=== PATIENT | male | born 1945 ===

== ENCOUNTER 2021-09-08 10:18 | Emergency (ER) | payer OTHER ==
[~2021-09-08] VITALS: Ht 177.8 cm; Wt 109.8 kg
[2021-09-08 10:40] LABS: Calcium, Ionized (POC) 1.24 mmol/L (1.10-1.46); Chloride (POC) 105 mmol/L (98-108); Creatinine (POC) 2.9 mg/dL (0.8-1.3); Glucose (ISTAT POC) 250 mg/dL (70-99); Hemoglobin (POC) 12.9 g/dL (13.5-17.5); Potassium (POC) 4.5 mmol/L (3.5-5.5); Sodium (POC) 138 mmol/L (135-148); Total CO2 (POC) 18 mmol/L (21-32)
[2021-09-08 10:50] LABS: BASOPHILS ABSOLUTE AUTO 0.04 K/mm3 (0.00-0.23); BASOPHILS PERCENT AUTO 1 % (0-2); EOSINOPHILS ABSOLUTE AUTO 0.15 K/mm3 (0.00-0.68); EOSINOPHILS PERCENT AUTO 2 % (0-6); Hematocrit 39.6 % (37.0-53.0); Hemoglobin 13.1 g/dL (13.5-17.5); IMMATURE GRAN ABSOLUTE AUTO 0.02 K/mm3 (0.00-0.10); IMMATURE GRAN PERCENT AUTO 0 % (0-1); LYMPHOCYTES ABSOLUTE AUTO 1.57 K/mm3 (0.84-5.20); LYMPHOCYTES PERCENT AUTO 23 % (21-46); MONOCYTES ABSOLUTE AUTO 0.61 K/mm3 (0.16-1.47); MONOCYTES PERCENT AUTO 9 % (4-13); Mean Corpuscular HGB 27.6 pg (26.0-34.0); Mean Corpuscular HGB Conc 33.1 g/dL (31.5-36.5); Mean Corpuscular Volume 84 fL (80-100); Mean Platelet Volume 12.6 fL (9.1-12.4); NEUTROPHILS ABSOLUTE AUTO 4.31 K/mm3 (1.96-9.15); NEUTROPHILS PERCENT AUTO 64 % (41-73); Platelet Count 182 K/mm3 (150-400); RDW Coefficient Variation 13.4 % (11.7-14.2); RDW Standard Deviation 41.3 fL (35.1-46.3); Red Blood Cell Count 4.74 M/mm3 (4.30-5.90)
[2021-09-08 11:21] LABS: Bun/Creatinine Ratio 20.5 (12.0-20.0); Calcium, Blood 9.8 mg/dL (8.5-10.1); Creatinine, Blood 2.44 mg/dL (0.60-1.20); Potassium, Blood 4.3 mmol/L (3.5-5.5)
== END 2021-09-08 12:10 | disposition home or self-care (01) ==
LOC: ER 10:18
PROVIDERS: Emergency Medicine
DX: R00.1 Bradycardia, unspecified (principal); I12.9 Hypertensive chronic kidney disease with stage 1 through stage 4 chronic kidney disease, or unspecified chronic kidney disease; E11.22 Type 2 diabetes mellitus with diabetic chronic kidney disease; N18.4 Chronic kidney disease, stage 4 (severe); E78.5 Hyperlipidemia, unspecified; E11.40 Type 2 diabetes mellitus with diabetic neuropathy, unspecified; G47.33 Obstructive sleep apnea (adult) (pediatric); I25.10 Atherosclerotic heart disease of native coronary artery without angina pectoris
CPT/HCPCS: 80047; 80048; 85014; 85025; 93005; 93010; 99284-25

== ENCOUNTER → 2022-04-13 | Outpatient (CLI) | payer OTHER ==
[2022-04-13 12:40] LABS: Creatinine Urine 64.3 mg/dL (27.00-270.00); Protein, Urine Quantitative 25.8 mg/dL (0.0-11.9)
== END | disposition home or self-care (01) ==
LOC: LAB SHORT 11:03
PROVIDERS: Internal Medicine Nephrology
DX: N18.30 Chronic kidney disease, stage 3 unspecified (principal); R80.9 Proteinuria, unspecified
CPT/HCPCS: 81050; 82043; 82570; 84156

== ENCOUNTER → 2022-06-11 | Outpatient (CLI) | payer OTHER ==
[~2022-06-11] MED LIST: AMLO10 PO; Acetaminophen325 M1 PO; Aspir 8181 MG PO; CAMPHOR MENTHOL TOP; CEFU500T30 PO; CHLO25B PO; CREON DR 12,001 EACH PO; DICLOFENAC SOD100 G1 TOP; FAMO20 PO; FENO145 PO; FERSU300 PO; HUMALOG JU100 UNIT/2 SC; LIDO700A20 TOP; NOVOLIN N100 UNIT/2 SC; OMEP20ER PO; PRAV20 PO; PROP160ER PO; SEMAGLUTIDE SC; SERTRALINE HCL150 M1 PO; SODBIC650 PO; TAMS.4ER PO; THERA-D2000 UNIT PO; TRAZ100 PO; VANCOCIN HCL125 MG PO; VISBIOME 112.51 EACH PO
== END | disposition home or self-care (01) ==
LOC: LAB 15:34 → LAB SHORT 15:34
DX: N39.0 Urinary tract infection, site not specified (principal)
CPT/HCPCS: 87077; 87086; 87186

== ENCOUNTER 2022-08-12 10:30 | Emergency (ER) | payer OTHER ==
[~2022-08-12] VITALS: Ht 177.8 cm; Wt 108.9 kg
[2022-08-12 11:10] LABS: BASOPHILS ABSOLUTE AUTO 0.03 K/mm3 (0.00-0.23); BASOPHILS PERCENT AUTO 1 % (0-2); EOSINOPHILS ABSOLUTE AUTO 0.14 K/mm3 (0.00-0.68); EOSINOPHILS PERCENT AUTO 2 % (0-6); Hematocrit 42.6 % (37.0-53.0); IMMATURE GRAN ABSOLUTE AUTO 0.01 K/mm3 (0.00-0.10); IMMATURE GRAN PERCENT AUTO 0 % (0-1); LYMPHOCYTES ABSOLUTE AUTO 1.52 K/mm3 (0.84-5.20); LYMPHOCYTES PERCENT AUTO 26 % (21-46); MONOCYTES ABSOLUTE AUTO 0.44 K/mm3 (0.16-1.47); MONOCYTES PERCENT AUTO 8 % (4-13); Mean Corpuscular HGB 26.9 pg (26.0-34.0); Mean Corpuscular HGB Conc 32.9 g/dL (31.5-36.5); Mean Corpuscular Volume 82 fL (80-100); Mean Platelet Volume 11.9 fL (9.1-12.4); NEUTROPHILS ABSOLUTE AUTO 3.72 K/mm3 (1.96-9.15); NEUTROPHILS PERCENT AUTO 64 % (41-73); Platelet Count 170 K/mm3 (150-400); RDW Coefficient Variation 13.3 % (11.7-14.2); RDW Standard Deviation 39.5 fL (35.1-46.3); White Blood Cell Count 5.86 K/mm3 (4.00-11.30)
[2022-08-12] MEDS ORDERED: INDERAL XL120 M1 PO (11:22)
[2022-08-12 11:35] LABS: Albumin, Blood 3.5 g/dL (3.4-5.0); Albumin/Globulin Ratio 0.8 (0.8-1.8); Bilirubin, Total 0.4 mg/dL (0.1-1.0); Bun/Creatinine Ratio 16.8 (12.0-20.0); Calcium, Blood 9.9 mg/dL (8.5-10.1); Creatinine, Blood 1.96 mg/dL (0.60-1.20); Free Thyroxine 1.17 ng/dL (0.70-1.60); Globulin, Blood 4.2 g/dL (2.2-4.0); Magnesium, Blood 1.9 mg/dL (1.6-2.4); Potassium, Blood 4.3 mmol/L (3.5-5.5); Thyroid Stimulating Hormone 1.44 uIU/mL (0.360-4.800); Total Protein, Blood 7.7 g/dL (6.4-8.2)
== END 2022-08-12 13:11 | disposition home or self-care (01) ==
LOC: ER 10:30
PROVIDERS: Student in an Organized Health Care Education/Training Program
DX: R00.1 Bradycardia, unspecified (principal); I12.9 Hypertensive chronic kidney disease with stage 1 through stage 4 chronic kidney disease, or unspecified chronic kidney disease; E11.22 Type 2 diabetes mellitus with diabetic chronic kidney disease; N18.4 Chronic kidney disease, stage 4 (severe); E11.40 Type 2 diabetes mellitus with diabetic neuropathy, unspecified; E78.5 Hyperlipidemia, unspecified; I25.10 Atherosclerotic heart disease of native coronary artery without angina pectoris; N40.0 Benign prostatic hyperplasia without lower urinary tract symptoms; Z88.8 Allergy status to other drugs, medicaments and biological substances; Z88.1 Allergy status to other antibiotic agents; Z79.899 Other long term (current) drug therapy; Z79.82 Long term (current) use of aspirin; Z79.4 Long term (current) use of insulin
CPT/HCPCS: 36415; 80053; 83735; 84439; 84443; 85025; 93005; 93010; 93242; 99284-25

== ENCOUNTER 2022-10-06 16:42 | Inpatient (IN) | payer OTHER ==
[~2022-10-06] VITALS: Ht 177.8 cm; Wt 104.0 kg
[~2022-10-06 16:42] MED LIST changes: +INDERAL XL120 M1 PO
[2022-10-06 18:12] LABS: BASOPHILS ABSOLUTE AUTO 0.05 K/mm3 (0.00-0.23); BASOPHILS PERCENT AUTO 1 % (0-2); EOSINOPHILS ABSOLUTE AUTO 0.11 K/mm3 (0.00-0.68); EOSINOPHILS PERCENT AUTO 2 % (0-6); Hematocrit 42.2 % (37.0-53.0); Hemoglobin 14.3 g/dL (13.5-17.5); IMMATURE GRAN ABSOLUTE AUTO 0.03 K/mm3 (0.00-0.10); IMMATURE GRAN PERCENT AUTO 0 % (0-1); LYMPHOCYTES ABSOLUTE AUTO 1.84 K/mm3 (0.84-5.20); LYMPHOCYTES PERCENT AUTO 26 % (21-46); MONOCYTES ABSOLUTE AUTO 0.45 K/mm3 (0.16-1.47); MONOCYTES PERCENT AUTO 6 % (4-13); Mean Corpuscular HGB 27.3 pg (26.0-34.0); Mean Corpuscular HGB Conc 33.9 g/dL (31.5-36.5); Mean Corpuscular Volume 81 fL (80-100); Mean Platelet Volume 12.5 fL (9.1-12.4); NEUTROPHILS ABSOLUTE AUTO 4.57 K/mm3 (1.96-9.15); NEUTROPHILS PERCENT AUTO 65 % (41-73); Platelet Count 169 K/mm3 (150-400); RDW Coefficient Variation 14.2 % (11.7-14.2); RDW Standard Deviation 41.9 fL (35.1-46.3); Red Blood Cell Count 5.23 M/mm3 (4.30-5.90); White Blood Cell Count 7.05 K/mm3 (4.00-11.30)
[2022-10-06 18:39] LABS: Albumin, Blood 3.7 g/dL (3.4-5.0); Bilirubin, Total 0.4 mg/dL (0.1-1.0); Bun/Creatinine Ratio 24.2 (12.0-20.0); Calcium, Blood 9.8 mg/dL (8.5-10.1); Creatinine, Blood 1.98 mg/dL (0.60-1.20); Globulin, Blood 3.6 g/dL (2.2-4.0); Potassium, Blood 4.1 mmol/L (3.5-5.5); Total Protein, Blood 7.3 g/dL (6.4-8.2)
[2022-10-06 20:04] LABS: Magnesium, Blood 1.7 mg/dL (1.6-2.4); Thyroid Stimulating Hormone 2.21 uIU/mL (0.360-4.800)
[2022-10-07 01:05] LABS: Anti-Xa UFH, PHA Monitoring <0.10 IU/mL; International Normalized Ratio 1.01; Prothrombin Time Results 10.6 Sec (9.7-11.5)
[2022-10-07] MEDS ORDERED: ASPI325 PO (01:07)
--- NOTE | 2022-10-07 02:40 | NUR ---
TRANSFER NOTE THIS RN RECEIVED REPORT VIA PHONE FROM LEE ANN HARPER IN THE ER. PATIENT TO ROOM AT 0047. PATIENT CONTINUES TO HAVE REPORTS OF CHEST PAIN THAT ARE 6/10 THAT FEEL LIKE PRESSURE; RADIATING TO LEFT ARM AND ABDOMEN. PATIENT STATES THAT THE PAIN CAN BE CONSTANT OR INTERMITTENT AT TIMES BUT IS CURRENTLY CONSTANT THIS RN WRITES THIS NOTE. PATIENT IS CURRENTLY REFUSING NITRO FOR THE CHEST PAIN. THE MONITOR SHOWS SR WITH FREQUENT PVC'S/BIGEMINY WITH HR 60-80S; PULSES ARE STRONG THROUGHOUT AND EXTREMETIES HAVE GOOD COLOR, TEMPERATURE, AND GOOD CAP REFILL. PATIENT REPORTS DIZZINESS AND SOB AT REST AND STATES THAT IT INCREASES WHEN HE MOVES OR STANDS. HEP GTT STARTED AND INFUSING PER EMAR. BP STABLE, SBP 150'S. AFEBRILE. PATIENT IS NOTED TO HAVE TWITCHING MOTIONS IN ALL EXTREMETIES AND REPORTED TO THIS RN TO HAVE "SOME VERSION OF RESTLESS LEG SYNDROME". PATIENT ALSO REPORTS NEUROPATHY PAINS IN EXTREMETIES CURRENTLY. PATIENT IS A SBA AND USES A CANE AT BASELINE. THIS RN INSTRUCTED PATIENT TO NOT GET UP WITHOUT ASSISTANCE DUE TO CURRENT CONDITION AND DIZZINESS. PATIENT VERBALIZED UNDERSTANDING AND HAS USED A URINAL IN THE BED. PATIENT WAS ABLE TO TRANSFER FROM THE [facility] TO THE BED UPON ARRIVAL TO THE ROOM A SBA. PATIENT CONTINUES TO BE ON RA WITH O2 SATS >92% DESPITE REPORTS OF SOB. MEDICATING PER EMAR. BED IN LOWEST POSITION AND CALL LIGHT WITHIN REACH. THIS RN WILL REVIEW CHART AND CONTINUE TO MONITOR CLOSELY AND PROVIDE INTERVENTIONS NEEDED/ORDERED.
[2022-10-07 03:48] LABS: BASOPHILS ABSOLUTE AUTO 0.06 K/mm3 (0.00-0.23); BASOPHILS PERCENT AUTO 1 % (0-2); EOSINOPHILS ABSOLUTE AUTO 0.18 K/mm3 (0.00-0.68); EOSINOPHILS PERCENT AUTO 3 % (0-6); Hematocrit 40.9 % (37.0-53.0); Hemoglobin 13.7 g/dL (13.5-17.5); IMMATURE GRAN ABSOLUTE AUTO 0.03 K/mm3 (0.00-0.10); IMMATURE GRAN PERCENT AUTO 0 % (0-1); LYMPHOCYTES ABSOLUTE AUTO 2.44 K/mm3 (0.84-5.20); LYMPHOCYTES PERCENT AUTO 34 % (21-46); MONOCYTES ABSOLUTE AUTO 0.53 K/mm3 (0.16-1.47); MONOCYTES PERCENT AUTO 7 % (4-13); Mean Corpuscular HGB Conc 33.5 g/dL (31.5-36.5); Mean Corpuscular Volume 81 fL (80-100); Mean Platelet Volume 12.6 fL (9.1-12.4); NEUTROPHILS ABSOLUTE AUTO 3.93 K/mm3 (1.96-9.15); NEUTROPHILS PERCENT AUTO 55 % (41-73); Platelet Count 156 K/mm3 (150-400); RDW Coefficient Variation 14.3 % (11.7-14.2); RDW Standard Deviation 41.9 fL (35.1-46.3); Red Blood Cell Count 5.08 M/mm3 (4.30-5.90); White Blood Cell Count 7.17 K/mm3 (4.00-11.30)
[2022-10-07 04:08] LABS: Albumin, Blood 3.4 g/dL (3.4-5.0); Bilirubin, Total 0.5 mg/dL (0.1-1.0); Bun/Creatinine Ratio 23.4 (12.0-20.0); Calcium, Blood 9.8 mg/dL (8.5-10.1); Creatinine, Blood 2.05 mg/dL (0.60-1.20); Globulin, Blood 3.5 g/dL (2.2-4.0); Potassium, Blood 3.8 mmol/L (3.5-5.5); Total Protein, Blood 6.9 g/dL (6.4-8.2)
--- NOTE | 2022-10-07 05:17 | NUR ---
SHIFT SUMMARY PATIENT CONTINUES TO HAVE INTERMITTENT CHEST PAIN/PRESSURE, SOB, AND DIZZINESS WITH MOVEMENT. PATIENT CURRENTLY IS COMPLAINING MORE ABOUT ABDOMINAL PAIN THAT HE DESCRIBES BEING SORE/CONSTANT/RADIATING. PT CONTINUES TO HAVE FREQUENT PVC'S WITH HR 60-80S. BP STABLE. PT PLACED ON 1L VIA NC TO HELP WITH FEELING OF SOB, WHICH PT STATED HAS HELPED. O2 SATS >92%. AFEBRILE. NO DIAPHORESIS NOTED. PT CONTINUES TO REFUSE NITRO. NO CHANGE IN NEURO STATUS FROM PREVIOUS NOTE/ASSESSMENT. PT CALLING APPROPRIATELY. PT CONTINUES TO BE NPO. PULSES STRONG, EXTREMETIES WARM/PINK. BED IN LOWEST POSITION AND CALL LIGHT WITHIN REAHC. THIS RN WILL CONTINUE TO MONITOR UNTIL SHIFT CHANGE AT 0700.
[2022-10-07 08:42] LABS: Amylase, Blood 97 U/L (25-115)
[2022-10-07 12:01] LABS: CPK Creatine Kinase 233 U/L (39-308)
--- NOTE | 2022-10-07 18:22 | NUR ---
PT HAS BEEN RESTING WELL IN BED T/O THE ISIDRO FREE OF DISTRESS. PT REPORTS LT SIDED SHOULDER PAIN THAT RADIATES INTO ABD AND CHEST. HE HAS ALSO COMPLAINED OF CASTILLO T/O THE DAY, PT IS ALL RELIEVED WITH FENTANYL IVP FOR REPORTED 9/10 PAIN. PT A/O X4, ANSWERING QUESTIONS APPROPRIATELY IN FULL SENTENCES. LS CELAR T/O ALL LUNG TENORIO. VSS. NADN. HE IS ABLE TO SIT AT BEDSIDE TO USE URINAL AND TO EAT MEALS. PT WILL BE NPO TONIGHT FOR STRESS TEST THAT WILL BEGING AT 0730 IN THE AM, PT IS MADE AWARE OF THIS.
--- NOTE | 2022-10-07 20:34 | NUR ---
ASSUMPTION OF CARE/UPDATE THIS RN ASSUMED CARE OF PATIENT AT 1900. REPORT TAKEN FROM REBECCA HARPER. PATIENT PRESSED CALL BUTTON DURING REPORT, AT WHICH TIME CRIB ATTENDANT BECKI, DAYA RN, AND REBECCA HARPER WENT TO BEDSIDE D/T PT STATING HE WAS NOT DOING WELL. PATIENT REPORTED A "POUNDING/THROBBING" HEADACHE THAT HE FELT THROUGHOUT HIS ENTIRE HEAD. HE STATED IT CAME ON QUICKLY. PT WAS PREVIOUSLY MEDICATED PER EMAR FOR HEADACHE AND BACK PAIN AN HOUR BEFORE. PATIENT ALSO STATED HE FELT "HE WAS LOSING CONTROL OF HIS BODY". THIS RN NOTED TWITCHING IN ALL EXTREMETIES. PATIENT SAT HIMSELF UP ON THE SIDE OF THE BED AND REPORTED THAT THE LUMBAR REGION OF HIS BACK WAS GIVING HIM SHARP PAINS THAT HE WAS FEELING RADIATE TO HIS LEGS; TWITCHING CONTINUED THROUGHOUT EXTREMETIES. PATIENT WAS ASSISTED BACK IN BED AND GIVEN COLD WASH CLOTH FOR FOREHEAD. KNEES RAISED IN BED TO ASSIST WITH BACK PAIN. PT STATED THAT HIS BACK FELT BETTER LYING DOWN. PT WAS INTSTRUCTED TO SLOW BREATHING AND TAKE DEEP BREATHS. TWITCHING APPEARED TO IMPROVE WITH POSITIONING. VITALS STABLE DURING EVENT. MONITOR CONTINUED TO SHOW SR WITH PVC'S. ON RA WITH O2 SATS >94%. SBP 140'S. THIS RN CHECKED ON PT 10 MINUTES LATER AND PATIENT STATED THAT HEADACHE WAS IMPROVING AND THE TWITCHING AND BACK PAIN WAS BETTER WELL. BED IN LOWEST POSITION AND CALL LIGHT WITHIN REACH. THIS RN WILL CONTINUE TO MONITOR CLOSELY AND PROVIDE INTERVENTIONS NEEDED/ORDERED.
--- NOTE | 2022-10-08 05:52 | NUR ---
SHIFT SUMMARY NO ACUTE CHANGES SINCE PREVIOUS NOTE. PATIENT DENIES CHEST PAIN/PRESSURE AND SOB/DIZZINESS. PATIENT REPORTS ONLY A MILD HEADACHE, ABDOMINAL PAIN, AND BACK PAIN. PATIENT ON 1L VIA NC D/T DESATTING WHILE SLEEPING. SR WITH PVC'S AND ESCAPE BEATS ON MONITOR; BIGEMINY/TRIGEMINY NOTED AT TIMES. PATIENT ALERT AND ORIENTED FULLY. ABLE TO MAKE NEEDS KNOWN. CALLING APPROPRIATELY. INDEPENDENT WITH URINAL AND REPOSITIONING IN BED. NO FURTHER PROBLEMS WITH TWITCHING NOTED BY THIS RN SINCE PREVIOUS NOTE. HEP GTT INFUSING PER EMAR. BED IN LOWEST POSITION AND CALL LIGHT WITHIN REACH. THIS RN WILL CONTINUE TO MONITOR UNTIL SHIFT CHANGE AT 0700.
[2022-10-08 05:58] LABS: Hematocrit 42.3 % (37.0-53.0); Hemoglobin 14.2 g/dL (13.5-17.5); Platelet Count 162 K/mm3 (150-400)
[2022-10-08 06:20] LABS: Bun/Creatinine Ratio 21.2 (12.0-20.0); Calcium, Blood 9.5 mg/dL (8.5-10.1); Creatinine, Blood 2.12 mg/dL (0.60-1.20); Potassium, Blood 3.9 mmol/L (3.5-5.5)
--- NOTE | 2022-10-08 17:25 | NUR ---
SHIFT SUMMARY; ASSUMED CARE AT 0700. A/A/OX4, 2 DAY STRESS TEST STARTED THIS AM. INDEPENDANT IN ROOM AND WITH REPOSITIONING. MEDS PER EMAR. FENTANYL PRN FOR CHRONIC BACK PAIN. USES URINAL AT BEDSIDE. HEPARIN INFUSING AT 17UNITS/KG PER ORDERS. NO ACUTE MEDICAL CHANGES DURING SHIFT, VSS, DENIES CP, WILL CONTINUE TO MONITOR AND TREAT UNTIL CHANGE OF SHIFT.
--- NOTE | 2022-10-09 06:29 | NUR ---
SHIFT SUMMARY PT A&O X4; PLEASANT AND COOPERATIVE WITH CARE. VSS. PT DENIES SOB OR CHEST PAIN. PT REPORTS 5/10 CHEST PRESSURE, STATES FEELS "LIKE SOMETHING SITTING ON HIS CHEST". PT STATES THIS IS NOT NEW PRESSURE, HAS NOT WORSENED OR CHANGED. PT NOT DIAPHORETIC, DENIES LIGHTHEADNESS OR DIZZINESS. PT REPORTS CHRONIC BACK PAIN, ALSO ABD PAIN. MEDICATED PER EMAR. PT DID NOT REST MUCH THROUGHOUT SHIFT. PT ABLE TO VERBALIZE NEEDS AND CALLS APPROPRIATELY. PT NPO SINCE 0000 FOR 2ND PART OF STRESS TEST THIS AM. HEPARIN INFUSING PER EMAR.
[2022-10-09 17:15] LABS: Albumin, Blood 3.6 g/dL (3.4-5.0); Anion Gap 7 mmol/L (6-16); Blood Urea Nitrogen 39 mg/dL (8-24); CO2, Blood 24 mmol/L (21-32); Calcium, Blood 9.6 mg/dL (8.5-10.1); Chloride, Blood 105 mmol/L (98-108); Creatinine, Blood 2.29 mg/dL (0.60-1.20); Glomerular Filtration Rate 29 (60-); Glucose, Blood 186 mg/dL (70-99); Phosphorus, Blood 2.9 mg/dL (2.5-4.9); Potassium, Blood 3.8 mmol/L (3.5-5.5); Sodium, Blood 136 mmol/L (136-145)
--- NOTE | 2022-10-09 17:51 | NUR ---
SHIFT SUMMARY; ASSUMED CARE AT 0700. A/A/OX4, INDEPENDANT IN ROOM. 2ND HALF OF STRESS TEST COMPLETE TODAY. DENIES CHEST PAIN OR SOB DURING SHIFT. PLAN FOR ANGIO IN AM PER CARDIOLOGY, NPO AFTER MIDNIGHT. VSS, MEDICATED PER EMAR. NO ACUTE MEDICAL CHANGES DURING SHIFT. WILL CONTINUE TO MONITOR AND TREAT UNTIL CHANGE OF SHIFT.
[2022-10-10 04:40] LABS: Hematocrit 40.2 % (37.0-53.0); Hemoglobin 13.5 g/dL (13.5-17.5); Mean Platelet Volume 12.3 fL (9.1-12.4); Platelet Count 152 K/mm3 (150-400)
[2022-10-10 04:56] LABS: Albumin, Blood 3.4 g/dL (3.4-5.0); Anion Gap 7 mmol/L (6-16); Blood Urea Nitrogen 36 mg/dL (8-24); CO2, Blood 26 mmol/L (21-32); Calcium, Blood 9.2 mg/dL (8.5-10.1); Chloride, Blood 106 mmol/L (98-108); Creatinine, Blood 2.25 mg/dL (0.60-1.20); Glomerular Filtration Rate 30 (60-); Glucose, Blood 176 mg/dL (70-99); Phosphorus, Blood 3.5 mg/dL (2.5-4.9); Potassium, Blood 3.7 mmol/L (3.5-5.5); Sodium, Blood 139 mmol/L (136-145)
--- NOTE | 2022-10-10 06:01 | NUR ---
SHIFT SUMMARY PT PLEASANT AND COOPERATIVE WITH CARE, A&O X4. VSS. HERPARIN INFUSING PER EMAR, NS INFUSING PER EMAR. PT NPO FOR ANGIO THIS AM. PT UP IN ROOM TO USE BATHROOM INDEPENDENTLY, PT DOES WELL AND TOLERATES THIS WELL. PT DENIES CHEST PAIN OR CHEST PRESSURE DURING SHIFT. DENIES SOB. PT DOES REPORT 6 - 7/10 PAIN IN BACK AND ABDOMEN, REPOSITIONING, ALLOWING FOR REST AND MEDICATING PER EMAR TO HELP MANAGE PAIN. NO ACUTE CHANGES THROUGHOUT SHIFT. CALL LIGHT IN REACH
--- NOTE | 2022-10-10 17:35 | NUR ---
SHIFT SUMMARY; ASSUMED CARE AT 0700. A/A/OX4, TO [facility]ENTER AT 0845 FOR ANGIO. RETURNS AT 1030. RIGHT RADIAL SITE, TR BAND AND ARMBOARD INTACT. CAP REFILL <3, RADIAL PULSE PALPABLE, TR BAND RECOVERED AND REMOVED PER ORDERS, TEGADERM IN PLCE, NO BRUISING SWELLING OR BLEEDING FROM SITE. HEPARIN DC'D PER ORDERS, NS INFUSING AT 75ML/HR. AMBULATES IN ROOM WITHOUT DIFFICULTY, REPOSITIONS SELF IN BED NEEDED. DENIES CP OR SOB DURING SHIFT. VSS, WILL CONTINUE TO MONITOR AND TREAT UNTIL CHANGE OF SHIFT.
[2022-10-11 04:47] LABS: Hematocrit 39.5 % (37.0-53.0); Hemoglobin 13.1 g/dL (13.5-17.5)
[2022-10-11 05:13] LABS: Albumin, Blood 3.4 g/dL (3.4-5.0); Anion Gap 9 mmol/L (6-16); Blood Urea Nitrogen 30 mg/dL (8-24); Bun/Creatinine Ratio 14.7 (12.0-20.0); CO2, Blood 23 mmol/L (21-32); Calcium, Blood 9.3 mg/dL (8.5-10.1); Chloride, Blood 107 mmol/L (98-108); Creatinine, Blood 2.04 mg/dL (0.60-1.20); Glomerular Filtration Rate 33 (60-); Glucose, Blood 193 mg/dL (70-99); Magnesium, Blood 2.1 mg/dL (1.6-2.4); Phosphorus, Blood 2.9 mg/dL (2.5-4.9); Potassium, Blood 3.9 mmol/L (3.5-5.5); Sodium, Blood 139 mmol/L (136-145)
--- NOTE | 2022-10-11 05:38 | NUR ---
SHIFT SUMMARY PT PLEASANT THROUGHOUT SHIFT. VSS; PT HAD SEVERAL EPISODES OF HR DECREASING WHILE ASLEEP, 39 - 50'S. PT DID HAVE TEMP OF 99.7, TYLENLOL GIVEN AND TEMPERATURE IN ROOM TURNED DOWN. REASSESSMENT SHOWED TEMP OF 98.8. PT RESTED WEL MOST OF THE SHIFT. PT DID HAVE PAIN ON AND OFF; MEDICATED PER EMAR. ALSO HAD ONE EPISODE OF BLOODY NOSE. RADIAL SITE STILL FREE OF OOZING, SWELLING, TENDERNESS OR PAIN. AT SHIFT CHANGE, THIS RN NOTED EDEMA IN R HAND; IT WAS FOUND THAT IV SITE HAD INFILTRATED. IV REMOVED. R HAND IS STILL SWOLLEN BUT IS DECREASING A LITTLE. NS INFUSING PER EMAR. 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 SHOULD BE IN TO SEE PT SOMETIME THIS AM. PT UP IN ROOM INDEPENDENTLY TO USE BATHROOM. CALL LIGHT IN REACH AND PT CALLING APPROPRIATELY
--- NOTE | 2022-10-11 16:04 | NUR ---
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 CARDIAC: PATIENT WITH PREVIOUS STRESS TEST AND POST RCA BALLOONING 10/10, IS AWAITING CONSULT AND POSSIBLE INTERVENTION TOMORROW. WILL BE PRESUMPTIVELY NPO 0000. DENIES CHEST PAIN/PRESSURE OR SOB. DID HAVE SOME MILD DIZZINESS IN THE SHOWER, SELF RESOLVED NONE SINCE. PATIENT HAS BEEN NORMOTENSIVE FOR PATIENT. PULM: SPO2 >96% ON RA. GI/: ABLE TO WALK TO BATHROOM OR USE BEDSIDE URINAL. NO CONCERNS AT THIS TIME. WILL COTINUE TO MONITOR UNTIL SHIFT CHANGE, NO CONCERNS AT THIS TIME FROM STAFF OR PATIENT AT THIS TIME.
[2022-10-12 04:24] LABS: Hemoglobin 12.8 g/dL (13.5-17.5)
[2022-10-12 05:09] LABS: Albumin, Blood 3.2 g/dL (3.4-5.0); Anion Gap 10 mmol/L (6-16); Blood Urea Nitrogen 36 mg/dL (8-24); Bun/Creatinine Ratio 17.1 (12.0-20.0); CO2, Blood 22 mmol/L (21-32); Calcium, Blood 9.5 mg/dL (8.5-10.1); Chloride, Blood 106 mmol/L (98-108); Glomerular Filtration Rate 32 (60-); Glucose, Blood 195 mg/dL (70-99); Phosphorus, Blood 2.8 mg/dL (2.5-4.9); Potassium, Blood 3.8 mmol/L (3.5-5.5); Sodium, Blood 138 mmol/L (136-145)
--- NOTE | 2022-10-12 05:53 | NUR ---
SHIFT SUMMARY VSS; HR 70'S W/ TRIGIMENY PVC'S, SBP 140'S, 02 SATS MAINTAINING >96% ON RA. NO EVENTS OF HR DECREASING WHILE SLEEPING. PT DENIES CHEST PAIN, PRESSURE, SOB, DIZZINESS OF LIGHTHEADNESS. PT REPORTS BACK AND ABDOMINAL PAIN 6-7/10; MEDICATED PER EMAR. PT RESTED WELL. PT UP TO RESTROOM INDEPENDENTLY THROUGHOUT SHIFT. PT REPORTS BEING A LITTLE NERVOUS AND ANXIOUS FOR POSSIBLE PROCEDURE TOMORROW. THIS RN LISTENED, ANSWERED QUESTIONS AND OFFERED COMFORT. NO EVENTS OF NOSE BLEEDS THIS SHIFT. NO ACUTE CHANGES THROUGHOUT SHIFT. AROUND 1999; PT BECAME FRUSTRATED AND UPSET D/T SITUATION WITH RT AND PT "HAVING TO SIGN A PAPER ABOUT CPAP". THIS RN LISTENED AND OFFERED COMFORT TO DEESCALATE SITUATION, THIS RN ALSO INFORMED PUBLIC RELATIONS CONSULTANT. PUBLIC RELATIONS CONSULTANT ALSO IN TO TALK WITH PT AND EXPLAIN FORM AND PURPOSE OF THE FORM. PT WAS ABLE TO CALM DOWN AFTER A LITTLE WHILE AND VERBALIZED UNDERSTANDING OF THE SITUATION. PT WAS UPSET WITH APPROACH OF RT AND THE FORM, ALSO WITH "LITTLE THINGS THAT HAVE BUILT UP" SINCE HIS ARRIVAL. MAY BENEFIT FROM PATIENT ADVOCATE VISIT.
--- NOTE | 2022-10-12 06:01 | NUR ---
UPDATE DR. CRUZ IN TO SEE PT THIS AM REGARDING RENAL LABS AND TO ROUND. NEW ORDERS FOR NS AT 50MLS/HR STARTING NOW AND MUCAMYST 1200 PO BID. ORDERS PLACED. NS INFUSING.
--- NOTE | 2022-10-12 08:13 | NUR ---
NURSING PCU DAYSHIFT: Assumed care of pt at approx 0700. A/O, cooperative w/care. C/O some back discomfort r/t bed though denies any other pain. Skin intact w/no breakdown noted, recovered R radial site. Ambulates independently and w/o difficulty, chronic UE tremors which pt states are normal. Tele in place, NSR w/PVC's, no c/o CP/pressure, BP 139/106 prior to a.m. meds, no noted edema. L/S cta t/o, O2 sat 100% on RA, no cough. Abd soft, tender w/palp, BT+, voiding w/o difficulty per pt. PIV x1, NS iniated at 50cc/hr as per nephrology d/o. No s/s of acute distress this a.m. Pt NPO for planned mesenteric angiogram w/IR. Denies any current needs or questions regarding plan of care. Seen by head of housekeeping and new d/o received, PMD currently at bedside. Call light in reach, cont to monitor for any changes.
--- NOTE | 2022-10-12 17:37 | NUR ---
NURSING PCU DAYSHIFT SUMMARY: Pt to [facility] early this afternoon for mesenteric angiogram, returned to room at approx 1330, R groin site w/angio-seal closure device, stent placement to SMA. Site w/no s/s bleed/hematoma, recovered as per orders w/o difficulty, pt ambulated in room, remains stable. at bedside this afternoon, procedure results discussed, denied questions/needs at that time. Pt currently OOB in chair having dinner, IVF continue to infuse as per d/o, no s/s of acute distress. Call light in reach, cont to monitor until rpt is given to NOC RN.
--- NOTE | 2022-10-13 05:58 | NUR ---
CONTROLS TECHNICIAN SUMMARY PT IS ALERT AND ORIENTED THIS SHIFT COMMUNICATING APPRORIATELY W STAFF. PT DENIED ANY CP OR PRESSURE THIS SHIFT. TELE SHOWING SR 70'S W BIGEMINAL AND TRIGEMINAL PVC'S THIS SHIFT. PT'S R GROIN SITE IS C/D/I W NO S/S OF BLEEDING, SWELLING OR TENDERNESS THIS SHIFT. BP WNL AND STABLE. PT ABLE TO SLEEP COMFORTABLY FOR MOST OF THE NIGHT W CALL LIGHT WITHIN REACH. WILL REPORT TO ONCOMING RN.
[2022-10-13 06:33] LABS: Hemoglobin 13.9 g/dL (13.5-17.5)
[2022-10-13 07:06] LABS: Albumin, Blood 3.5 g/dL (3.4-5.0); Anion Gap 9 mmol/L (6-16); Blood Urea Nitrogen 35 mg/dL (8-24); Bun/Creatinine Ratio 17.9 (12.0-20.0); CO2, Blood 24 mmol/L (21-32); Chloride, Blood 106 mmol/L (98-108); Creatinine, Blood 1.96 mg/dL (0.60-1.20); Glomerular Filtration Rate 35 (60-); Glucose, Blood 145 mg/dL (70-99); Potassium, Blood 3.8 mmol/L (3.5-5.5); Sodium, Blood 139 mmol/L (136-145)
--- NOTE | 2022-10-13 07:34 | NUR ---
Alert, oriented and pleasantly conversant. No complaints at this time; states that he is expecting to be discharged today, and he is agreeable to this. STates that his pharmacy is the [facility], first, [place] if not able to get meds from the [place].
[2022-10-13] MEDS ORDERED: HUMALOG KW100 UNIT/1 UD (10:15)
[2022-10-13] MEDS ORDERED: NAC600 MG PO (10:19)
[2022-10-13] MEDS ORDERED: CLOP75 PO (10:20)
[2022-10-13] MEDS ORDERED: Isosorbide Mono30 MG PO (10:22)
[2022-10-13] MEDS ORDERED: Lopressor 50 mg50 MG PO (10:23)
[2022-10-13] MEDS ORDERED: NITR.4SL SL (10:24)
[2022-10-13] MEDS ORDERED: AFRIN15 M6 (10:25)
--- NOTE | 2022-10-13 11:22 | NUR ---
Discharge instructions were reviewed with the patient and his . Questions were answered, and they expressed understanding and appreciation for the information. Pt declined wheelchair transport out to private vehicle. STates prefers to walk out with his . IV and telemetry were removed.
== END 2022-10-13 11:24 | disposition home or self-care (01) | DRG 357 ==
LOC: ER 16:42 → PCU 16:43
PROVIDERS: Internal Medicine; Internal Medicine Interventional Cardiology; Internal Medicine Nephrology; Physician Assistant; Student in an Organized Health Care Education/Training Program; ADMIT Internal Medicine
PROC: 02703ZZ Dilation of Coronary Artery, One Artery, Percutaneous Approach (ICD-10-PCS; 2022-10-10)
PROC: 4A023N7 Measurement of Cardiac Sampling and Pressure, Left Heart, Percutaneous Approach (ICD-10-PCS; 2022-10-10)
PROC: B215YZZ Fluoroscopy of Left Heart using Other Contrast (ICD-10-PCS; 2022-10-10)
PROC: B211YZZ Fluoroscopy of Multiple Coronary Arteries using Other Contrast (ICD-10-PCS; 2022-10-10)
PROC: 04753DZ Dilation of Superior Mesenteric Artery with Intraluminal Device, Percutaneous Approach (ICD-10-PCS; principal; 2022-10-12)
PROC: B414YZZ Fluoroscopy of Superior Mesenteric Artery using Other Contrast (ICD-10-PCS; 2022-10-12)
DX: K55.1 Chronic vascular disorders of intestine (principal); E87.1 Hypo-osmolality and hyponatremia; N18.4 Chronic kidney disease, stage 4 (severe); N17.9 Acute kidney failure, unspecified; Z28.21 Immunization not carried out because of patient refusal; I25.10 Atherosclerotic heart disease of native coronary artery without angina pectoris; I12.9 Hypertensive chronic kidney disease with stage 1 through stage 4 chronic kidney disease, or unspecified chronic kidney disease; E11.22 Type 2 diabetes mellitus with diabetic chronic kidney disease; G47.33 Obstructive sleep apnea (adult) (pediatric); E11.40 Type 2 diabetes mellitus with diabetic neuropathy, unspecified; N40.0 Benign prostatic hyperplasia without lower urinary tract symptoms; E11.65 Type 2 diabetes mellitus with hyperglycemia; E86.9 Volume depletion, unspecified; D63.1 Anemia in chronic kidney disease; M54.9 Dorsalgia, unspecified; G89.29 Other chronic pain; Z95.5 Presence of coronary angioplasty implant and graft; Z88.8 Allergy status to other drugs, medicaments and biological substances; Z79.4 Long term (current) use of insulin; Z79.82 Long term (current) use of aspirin; Z79.899 Other long term (current) drug therapy
CPT/HCPCS: 36415; 37236; 37252; 71046; 71275; 74175; 75726; 76770; 76937; 78452; 80048; 80053; 80069; 82150; 82550; 82947; 83605; 83690; 83735; 83880; 84443; 84484; 85014; 85018; 85025; 85049; 85347; 85520; 85610; 92920; 93005; 93010; 93017; 93454; 94762; 96374; 96375; 96376; 99152; 99153; 99285-25; A9270; A9500; C1725; C1753; C1760; C1769; C1876; C1887; C1894; G0378; J0461; J0706; J1644; J1815; J2250; J2405; J2785; J3010; J7030; J7040; J7050; Q9967

== ENCOUNTER → 2022-12-16 | Outpatient (CLI) | payer OTHER, MEDICARE ==
[~2022-12-16] MED LIST changes: +AFRIN15 M6; +ASPI325 PO; +CLOP75 PO; +HUMALOG KW100 UNIT/1 UD; +Isosorbide Mono30 MG PO; +Lopressor 50 mg50 MG PO; +NAC600 MG PO; +NITR.4SL SL
[2022-12-16 15:57] LABS: Creatinine Urine 66.8 mg/dL (27.00-270.00); Protein, Urine Quantitative 37.1 mg/dL (0.0-11.9)
== END | disposition home or self-care (01) ==
LOC: LAB SHORT 13:13
PROVIDERS: Internal Medicine Nephrology
DX: N18.2 Chronic kidney disease, stage 2 (mild) (principal); N25.81 Secondary hyperparathyroidism of renal origin; E55.9 Vitamin D deficiency, unspecified; E78.00 Pure hypercholesterolemia, unspecified; R76.9 Abnormal immunological finding in serum, unspecified; R94.5 Abnormal results of liver function studies; R94.6 Abnormal results of thyroid function studies
CPT/HCPCS: 81050; 82043; 82570; 84156

== ENCOUNTER → 2023-02-16 | Outpatient (CLI) | payer OTHER ==
[2023-02-16 14:09] LABS: Adenovirus F 40/41 Not Detected (NOT DETECT); Astrovirus Not Detected (NOT DETECT); Campylobacter Sp Not Detected (NOT DETECT); Cryptosporidium Not Detected (NOT DETECT); Cyclospora Cayetanensis Not Detected (NOT DETECT); E. Coli O157 Not Detected (NOT DETECT); Entamoeba Histolytica Not Detected (NOT DETECT); Enteroaggregative E. coli-EAEC Not Detected (NOT DETECT); Enteropathogenic E. coli-EPEC Not Detected (NOT DETECT); Enterotoxigenic E. coli-ETEC Not Detected (NOT DETECT); Giardia Lamblia Not Detected (NOT DETECT); Norovirus GI/GII Not Detected (NOT DETECT); Plesiomonas Shigelloides Not Detected (NOT DETECT); Rotavirus A Not Detected (NOT DETECT); Salmonella Sp Not Detected (NOT DETECT); Sapovirus Not Detected (NOT DETECT); Shiga Toxin-prod E. coli-STEC Not Detected (NOT DETECT); Shigella/Enteroin E. coli-EIEC Not Detected (NOT DETECT); Vibrio Cholerae Not Detected (NOT DETECT); Vibrio Sp Not Detected (NOT DETECT); Yersinia Enterocolitica Not Detected (NOT DETECT)
== END | disposition home or self-care (01) ==
LOC: LAB SHORT 09:15
PROVIDERS: Student in an Organized Health Care Education/Training Program
DX: R19.7 Diarrhea, unspecified (principal)
CPT/HCPCS: 87507

== ENCOUNTER 2025-02-13 08:27 | Day surgery (SDC) | payer OTHER ==
[~2025-02-13] VITALS: Ht 177.8 cm; Wt 115.3 kg
[~2025-02-13 08:27] MED LIST changes: +EPINEPhrine HCl 1 MG/ML 1ML Amp ONE; +FentaNYL Citrate 50 MCG/ML 2 ML Injection ONE; +Lactated Ringer's 1,000 ML IV ONE; +Lidocaine 2%-Epineph 1:100000 20 ML MDV ONE; +propofoL 20 ML IV ONE
[2025-02-13] MEDS ORDERED: CeFAZolin Sodium 2,000 MG VIAL ONE (09:08)
[2025-02-13] MEDS ORDERED: SEMAGLUTIDE (09:43)
[2025-02-13] MEDS ORDERED: FISH OIL 1,0001 EA10 PO (09:44)
[2025-02-13] MEDS ORDERED: Seroquel Xr50 MG PO (09:46)
[2025-02-13] MEDS ORDERED: PANT20 PO (09:47)
[2025-02-13] MEDS ORDERED: LACT PO (09:48)
[2025-02-13] MEDS ORDERED: LOSA25 PO (09:49)
[2025-02-13] MEDS ORDERED: Lactated Ringer's 1,000 ML IV ONE ×2 (10:07→11:24)
--- NOTE | 2025-02-13 10:16 | NUR ---
02/13/[address] [place], [place] [address]Tushar cabello AWARE OF LLL COURSE BREATH SOUND. NO ORDERS AT THIS TIME.
[2025-02-13] MEDS ORDERED: propofoL 20 ML IV ONE (10:34)
[2025-02-13] MEDS ORDERED: Rocuronium Bromide 10 MG/ML 5ML Injection IV ONE (10:42)
--- NOTE | 2025-02-13 10:53 | NUR ---
02/13/25 10[address] Zenia Doherty RN AND DR. GRAY PREPPED RIGHT LEG WITH ALCOHOL, LEROY SALINAS PREPPED WITH CHLORPREP
[2025-02-13] MEDS ORDERED: Ondansetron HCl 2 MG / ML 2ML Vial ONE (10:59)
[2025-02-13] MEDS ORDERED: Sugammadex Sodium 200 MG/2ML SDV (100 MG/ML) ONE (11:01)
[2025-02-13 12:16] VITALS: BP 160/70
--- NOTE | 2025-02-13 12:57 | NUR ---
02/13/25 Nadine Vargas PT DENIED ANY PAIN, NO NAUSEA. PT ABLE TO TOLERATE FLUIDS WELL. AT SIDE OF RECLINER. PT EDUCATION PROVIDED. ALL QUESTIONS WERE ANSWERED, CONCERNS ADDRESSED. PT ABLE TO URINATE AFTER PROCEDURE.
== END 2025-02-13 12:54 | disposition home or self-care (01) ==
LOC: ORSCSDS 08:27
PROVIDERS: Orthopaedic Surgery
PROC: 0SBC4ZZ Excision of Right Knee Joint, Percutaneous Endoscopic Approach (ICD-10-PCS; principal; 2025-02-13 10:30)
DX: M23.221 Derangement of posterior horn of medial meniscus due to old tear or injury, right knee (principal); E13.9 Other specified diabetes mellitus without complications; Z79.85 Long-term (current) use of injectable non-insulin antidiabetic drugs; Z79.4 Long term (current) use of insulin; I10 Essential (primary) hypertension; Z79.899 Other long term (current) drug therapy; Z79.02 Long term (current) use of antithrombotics/antiplatelets; Z79.01 Long term (current) use of anticoagulants
CPT/HCPCS: 82947; J0171; J0690; J2405; J2704; J3010; J7120